=== PATIENT | female | born 1960 | race Caucasian/White ===

== ENCOUNTER 2024-03-13 14:48 | Inpatient (IN) | payer OTHER ==
[~2024-03-13] VITALS: Ht 167.6 cm; Wt 88.9 kg
[~2024-03-13 14:48] MED LIST: MELOXICAM7.5 MG PO
[2024-03-13 16:22] LABS: BASOPHILS % 0.2 % (0.0-1.0); HEMATOCRIT 40.5 % (34.2-44.1); HEMOGLOBIN 14.4 g/dL (12.0-16.0); LYMPHOCYTES # (AUTO) 1.1 (1.0-3.2); LYMPHOCYTES % 7.9 % (18.0-39.1); MEAN CORPUSCULAR HEMOGLOBIN 30.4 pg (28-32); MEAN CORPUSCULAR HGB CONC 35.6 g/dL (31-35); MEAN CORPUSCULAR VOLUME 85.6 fL (81-99); MONOCYTES # (AUTO) 0.2 (0.2-0.8); MONOCYTES % 1.8 % (4.4-11.3); NEUTROPHILS # (AUTO) 12.2 (2.1-6.9); NEUTROPHILS % 89.7 % (38.7-80.0); PLATELET COUNT 290 x10e3/uL (140-360); RED BLOOD COUNT 4.73 x10e6/uL (3.6-5.1); RED CELL DISTRIBUTION WIDTH 13.2 % (11.7-14.4); WHITE BLOOD COUNT 13.58 x10e3/uL (4.8-10.8)
[2024-03-13] MEDS: ONDANSETRON HCL INJ 2MG/ML 2ML 2 MG/ML VIAL IV STA ×3 (16:22→20:57)
[2024-03-13] MEDS: SODIUM CHLORIDE 0.9% 1000ML 1,000 ML IV STA (16:22)
[2024-03-13 16:34] LABS: ALBUMIN 4.2 g/dL (3.5-5.0); ANION GAP 16.8 mmol/L (8-16); BILIRUBIN,TOTAL 0.5 mg/dL (0.2-1.2); CALCIUM 10.2 mg/dL (8.4-10.2); CREATININE, SERUM 0.88 mg/dL (0.57-1.11); POTASSIUM 3.8 mmol/L (3.5-5.1); TOTAL PROTEIN 8.3 g/dL (6.5-8.1)
[2024-03-13] MEDS ORDERED: IOPAMIDOL 370 MG/ML 100 ML INFUS..BTL INJ ONE (16:54)
[2024-03-13 19:09] VITALS: PULSE 56; RESP 22; TEMP 99.1
[2024-03-13 20:30] VITALS: PULSE 58; RESP 18; O2SAT 100
[2024-03-13] MEDS: Morphine 4mg INJECTION 4 MG/ML INJ IV STA (20:58)
[2024-03-13] MEDS: SODIUM CHLORIDE 0.9% 1000ML 1,000 ML IV SCH (20:58)
[2024-03-13] MEDS: METRONIDAZOLE 500MG/NS 100ML 100 ML IV SCH (20:58)
[2024-03-13 21:27] LABS: HEMATOCRIT 39.5 % (34.2-44.1); HEMOGLOBIN 13.6 g/dL (12.0-16.0)
[2024-03-13 22:28] VITALS: BP 134/52; PULSE 55; RESP 20; TEMP 98.3; O2SAT 98
[2024-03-13 22:58] VITALS: BP 134/52; PULSE 55; RESP 20; TEMP 98.3; O2SAT 98
[2024-03-13] MEDS ORDERED: LEVOTHYROXINE50 MC1 (23:14)
[2024-03-14] VITALS (8 sets, daily range): BP systolic 108–150; BP diastolic 50–70; PULSE 50–89; RESP 17–20; TEMP 97.5–98.6; O2SAT 95–100
[2024-03-14] MEDS: CIPROFLOXACIN 400 MG/D5W 200ML 200 ML IV SCH (01:33)
[2024-03-14 05:50] LABS: BASOPHILS % 0.2 % (0.0-1.0); HEMATOCRIT 36.5 % (34.2-44.1); HEMOGLOBIN 12.1 g/dL (12.0-16.0); LYMPHOCYTES # (AUTO) 1.8 (1.0-3.2); LYMPHOCYTES % 13.3 % (18.0-39.1); MEAN CORPUSCULAR HEMOGLOBIN 29.7 pg (28-32); MEAN CORPUSCULAR HGB CONC 33.2 g/dL (31-35); MEAN CORPUSCULAR VOLUME 89.7 fL (81-99); MONOCYTES # (AUTO) 0.9 (0.2-0.8); NEUTROPHILS # (AUTO) 10.5 (2.1-6.9); NEUTROPHILS % 78.9 % (38.7-80.0); PLATELET COUNT 283 x10e3/uL (140-360); RED BLOOD COUNT 4.07 x10e6/uL (3.6-5.1); RED CELL DISTRIBUTION WIDTH 13.4 % (11.7-14.4); WHITE BLOOD COUNT 13.32 x10e3/uL (4.8-10.8)
[2024-03-14 06:24] LABS: ALBUMIN 3.8 g/dL (3.5-5.0); ALBUMIN/GLOBULIN RATIO 1.3 (0.8-2.0); ANION GAP 13.8 mmol/L (8-16); BILIRUBIN,TOTAL 0.4 mg/dL (0.2-1.2); CALCIUM 8.9 mg/dL (8.4-10.2); CREATININE, SERUM 0.83 mg/dL (0.57-1.11); POTASSIUM 3.8 mmol/L (3.5-5.1); TOTAL PROTEIN 6.8 g/dL (6.5-8.1)
[2024-03-14] MEDS ORDERED: IOPAMIDOL 370 MG/ML 100 ML INFUS..BTL INJ ONE (09:00)
[2024-03-14] MEDS ORDERED: SODIUM CHLORIDE 0.9% 100 ML ONE (09:00)
[2024-03-15] VITALS (9 sets, daily range): BP systolic 111–139; BP diastolic 42–76; PULSE 46–70; RESP 16–21; TEMP 97.3–98.8; O2SAT 97–100
[2024-03-15] MEDS: LEVOTHYROXINE SODIUM 50 MCG TAB PO SCH (05:08)
[2024-03-15] MEDS: CITRATE OF MAGNESIA 300ML BOTTLE PO SCH (05:12)
[2024-03-15 05:59] LABS: BASOPHILS # (AUTO) 0.1 (0.0-0.1); BASOPHILS % 1.1 % (0.0-1.0); EOSINOPHILS # (AUTO) 0.2 (0.0-0.4); HEMATOCRIT 38.2 % (34.2-44.1); HEMOGLOBIN 12.6 g/dL (12.0-16.0); LYMPHOCYTES # (AUTO) 3.3 (1.0-3.2); LYMPHOCYTES % 38.6 % (18.0-39.1); MEAN CORPUSCULAR HEMOGLOBIN 30.1 pg (28-32); MEAN CORPUSCULAR VOLUME 91.2 fL (81-99); MONOCYTES # (AUTO) 0.7 (0.2-0.8); MONOCYTES % 8.8 % (4.4-11.3); NEUTROPHILS # (AUTO) 4.2 (2.1-6.9); NEUTROPHILS % 49.3 % (38.7-80.0); PLATELET COUNT 245 x10e3/uL (140-360); RED BLOOD COUNT 4.19 x10e6/uL (3.6-5.1); RED CELL DISTRIBUTION WIDTH 13.8 % (11.7-14.4); WHITE BLOOD COUNT 8.45 x10e3/uL (4.8-10.8)
[2024-03-15] MEDS: BISACODYL 5 MG TAB EC PO SCH (06:08)
[2024-03-15 06:23] LABS: ANION GAP 12.8 mmol/L (8-16); CREATININE, SERUM 0.87 mg/dL (0.57-1.11); POTASSIUM 3.8 mmol/L (3.5-5.1)
[2024-03-15] MEDS ORDERED: BISACODYL 5 MG TAB EC PO SCH (07:00)
[2024-03-15 07:02] LABS: CHOL/HDL RATIO 3.5 (3.0-3.6)
[2024-03-15] MEDS: CITRATE OF MAGNESIA 300ML BOTTLE PO ONE (08:27)
[2024-03-15 10:15] LABS: FREE T4 (FREE THYROXINE) 0.9 ng/dL (0.8-1.8); THYROID STIMULATING HORMONE 5.725 uIU/mL (0.350-4.940)
[2024-03-15] MEDS ORDERED: PROPOFOL IV EMULSION 10 MG/ML 20 ML VIAL ONE (11:17)
[2024-03-15] MEDS ORDERED: ONDANSETRON HCL INJ 2MG/ML 2ML 2 MG/ML VIAL ONE (11:17)
[2024-03-15] MEDS ORDERED: LIDOCAINE HCL 2% LOCAL INJ 5 ML SDV VIAL INJ ONE (11:17)
[2024-03-15] MEDS ORDERED: EPHEDRINE SULFATE INJ 50 MG/ML VIAL ONE (11:17)
[2024-03-15] MEDS ORDERED: METOCLOPRAMIDE HCL 10 MG/2ML VIAL ONE (11:17)
[2024-03-15] MEDS ORDERED: DEXAMETHASONE SOD PHOS INJ 4 MG/ML SDV ONE (11:17)
[2024-03-15] MEDS ORDERED: FENTANYL CITRATE/PF 100MCG/2 ML INJ ONE (18:12)
[2024-03-15 20:07] LABS: WBC,FECAL (FECAL LACTOFERRIN) NEGATIVE (NEGATIVE)
[2024-03-16] VITALS (8 sets, daily range): BP systolic 133–176; BP diastolic 54–72; PULSE 52–79; RESP 12–21; TEMP 97.7–98.4; O2SAT 98–100
[2024-03-16] MEDS ORDERED: VANCOMYCIN 250MG/5ML ORAL SOLN PO SCH
[2024-03-16] MEDS: VANCOMYCIN 250MG/5ML ORAL SOLN PO SCH (08:00)
[2024-03-16] MEDS ORDERED: SEVOFLURANE INHAL SOLN 250 ML PEN BTL ONE (11:31)
[2024-03-16] MEDS ORDERED: PROPOFOL IV EMULSION 10 MG/ML 20 ML VIAL ONE (11:31)
[2024-03-16] MEDS ORDERED: ATROPINE SULFATE 1 MG/ML VIAL ONE (11:31)
[2024-03-16] MEDS ORDERED: GLYCOPYRROLATE INJ 0.2 MG/ML VIAL ONE (11:31)
[2024-03-16] MEDS ORDERED: LIDOCAINE HCL 2% LOCAL INJ 5 ML SDV VIAL INJ ONE (11:31)
[2024-03-16] MEDS ORDERED: ONDANSETRON HCL INJ 2MG/ML 2ML 2 MG/ML VIAL ONE (11:31)
[2024-03-16] MEDS ORDERED: EPHEDRINE SULFATE INJ 50 MG/ML VIAL ONE (11:31)
[2024-03-16] MEDS ORDERED: FENTANYL CITRATE/PF 100MCG/2 ML INJ ONE (11:58)
[2024-03-16] MEDS ORDERED: MIDAZOLAM HCL 2 MG/2 ML VIAL ONE (11:58)
[2024-03-16] MEDS ORDERED: ACETAMINOPHEN 1000 MG/100 ML 100 ML IV ONE (12:33)
[2024-03-16] MEDS ORDERED: KETAMINE 50MG/5ML SYR ONE (12:33)
[2024-03-16] MEDS ORDERED: IOPAMIDOL 610MG/1ML 300 MG/ML VIAL IV ONE (12:46)
[2024-03-16] MEDS: VANCOMYCIN HCL 125 MG CAPSULE PO SCH (14:38)
[2024-03-16] MEDS: Morphine 4mg INJECTION 4 MG/ML INJ IV PRN (16:34)
[2024-03-16] MEDS ORDERED: PHENAZOPYRIDINE HCL 100 MG TAB PO PRN (18:15)
[2024-03-16] MEDS: ONDANSETRON HCL INJ 2MG/ML 2ML 2 MG/ML VIAL IV PRN (21:50)
[2024-03-16] MEDS: SOLIFENACIN SUCCINATE 5 MG TAB PO SCH (22:31)
[2024-03-16] MEDS: PHENAZOPYRIDINE HCL 100 MG TAB PO SCH (22:36)
[2024-03-17] VITALS (7 sets, daily range): BP systolic 128–140; BP diastolic 54–65; PULSE 46–54; RESP 18–20; TEMP 97.6–98.7; O2SAT 96–100
[2024-03-18 00:19] VITALS: BP 107/44; PULSE 51; RESP 20; TEMP 98.7; O2SAT 100
[2024-03-18 05:08] VITALS: BP 132/52; PULSE 51; RESP 17; TEMP 98.5; O2SAT 99
[2024-03-18 08:02] VITALS: BP 133/86; PULSE 48; RESP 18; TEMP 97.8; O2SAT 98
[2024-03-18 08:16] VITALS: BP 133/86; PULSE 48; RESP 18; TEMP 97.8; O2SAT 98
== END 2024-03-18 11:16 | disposition home or self-care (01) | DRG 988 ==
LOC: ER 15:17 → ERHOLD 19:45 → MED/SURG3 22:56
PROVIDERS: ADMIT Internal Medicine; ATTEND Internal Medicine
PROC: 0DBM8ZX Excision of Descending Colon, Via Natural or Artificial Opening Endoscopic, Diagnostic (ICD-10-PCS; principal; 2024-03-15 17:40)
PROC: 0TJB8ZZ Inspection of Bladder, Via Natural or Artificial Opening Endoscopic (ICD-10-PCS; 2024-03-16)
PROC: BT141ZZ Fluoroscopy of Kidneys, Ureters and Bladder using Low Osmolar Contrast (ICD-10-PCS; 2024-03-16)
PROC: 0TC18ZZ Extirpation of Matter from Left Kidney, Via Natural or Artificial Opening Endoscopic (ICD-10-PCS; 2024-03-16)
PROC: 0T9B8ZZ Drainage of Bladder, Via Natural or Artificial Opening Endoscopic (ICD-10-PCS; 2024-03-16)
PROC: 0T768DZ Dilation of Right Ureter with Intraluminal Device, Via Natural or Artificial Opening Endoscopic (ICD-10-PCS; 2024-03-16 12:44)
DX: K55.9 Vascular disorder of intestine, unspecified (principal); A09 Infectious gastroenteritis and colitis, unspecified; D62 Acute posthemorrhagic anemia; N13.2 Hydronephrosis with renal and ureteral calculous obstruction; Z11.52 Encounter for screening for COVID-19; E03.9 Hypothyroidism, unspecified; Z79.890 Hormone replacement therapy; Z87.891 Personal history of nicotine dependence; R00.1 Bradycardia, unspecified; E66.9 Obesity, unspecified; K57.30 Diverticulosis of large intestine without perforation or abscess without bleeding; K64.8 Other hemorrhoids; I73.9 Peripheral vascular disease, unspecified; N81.6 Rectocele; N95.2 Postmenopausal atrophic vaginitis; N39.3 Stress incontinence (female) (male); Z68.31 Body mass index [BMI] 31.0-31.9, adult; N28.1 Cyst of kidney, acquired; E87.8 Other disorders of electrolyte and fluid balance, not elsewhere classified
CPT/HCPCS: 36415; 45378; 74174; 74177; 74420; 80048; 80053; 80061; 83630; 83993; 84439; 84443; 84481; 85014; 85018; 85025; 86140; 87045; 87086; 87177; 87324; 87328; 87449; 88300; 88305; 93306; 94799; 99284; C1758; C1766; C1769; C2617; J0461; J1100; J2001; J2250; J2270; J2405; J2765; J7030; J7050; Q9967; U0002

== ENCOUNTER → 2024-06-30 | Day surgery (SDC) | payer OTHER ==
[~2024-06-30] MED LIST changes: +ATORVASTATIN CA10 MG PO; +GLUCAGON FOR INJ 1 MG VIAL ONE; +HYOSCYAMINE SULFATE 0.5 MG/ML INJ ONE; +LEVOTHYROXINE50 MC1; +LIDOCAINE HCL 2% LOCAL INJ 5 ML SDV VIAL INJ ONE; +MULTI-VITAMIN1 EACH PO; +PANTOPRAZOLE SO40 MG PO; +PROPOFOL IV EMULSION 10 MG/ML 20 ML VIAL ONE; +VESICARE5 MG PO
[2024-06-30] MEDS: LACTATED RINGER'S 1,000 ML ONE (06:34)
[2024-06-30 09:00] VITALS: BP 140/75; PULSE 83; RESP 16; TEMP 97.5; O2SAT 100
== END | disposition home or self-care (01) ==
LOC: OR 05:30
PROVIDERS: ATTEND Internal Medicine Gastroenterology
DX: D12.3 Benign neoplasm of transverse colon (principal); K63.5 Polyp of colon; K62.1 Rectal polyp; K64.8 Other hemorrhoids; K57.30 Diverticulosis of large intestine without perforation or abscess without bleeding; E03.9 Hypothyroidism, unspecified; K21.9 Gastro-esophageal reflux disease without esophagitis; K27.9 Peptic ulcer, site unspecified, unspecified as acute or chronic, without hemorrhage or perforation; Z87.19 Personal history of other diseases of the digestive system; Z79.899 Other long term (current) drug therapy
CPT/HCPCS: 45380; 45385; J1610; J1980; J2003; J2704; J7121

== ENCOUNTER → 2024-12-25 | Outpatient (REF) | payer OTHER ==
[~2024-12-25] MED LIST changes: -GLUCAGON FOR INJ 1 MG VIAL ONE; -HYOSCYAMINE SULFATE 0.5 MG/ML INJ ONE; -LIDOCAINE HCL 2% LOCAL INJ 5 ML SDV VIAL INJ ONE; -PROPOFOL IV EMULSION 10 MG/ML 20 ML VIAL ONE
== END ==
LOC: RAD 09:53
PROVIDERS: ATTEND Urology
DX: N20.0 Calculus of kidney (principal)
CPT/HCPCS: 74018

== ENCOUNTER 2025-03-15 09:26 | Emergency (ER) | payer OTHER ==
[~2025-03-15] VITALS: Ht 167.6 cm; Wt 74.0 kg
[2025-03-15] MEDS: IBUPROFEN 600 MG TAB PO STA (09:53)
[2025-03-15 11:37] VITALS: PULSE 45; RESP 16; TEMP 97.3; O2SAT 98
[2025-03-15] MEDS ORDERED: ACETAMINOPHEN-1 EAC4 PO (12:15)
== END 2025-03-15 12:27 | disposition home or self-care (01) ==
LOC: FSED 09:31
DX: S93.492A Sprain of other ligament of left ankle, initial encounter (principal); X50.1XXA Overexertion from prolonged static or awkward postures, initial encounter; Y93.01 Activity, walking, marching and hiking; Y92.89 Other specified places as the place of occurrence of the external cause; E03.9 Hypothyroidism, unspecified
CPT/HCPCS: 99283